=== PATIENT | male | born 1935 | race Caucasian/White ===

== ENCOUNTER 2018-02-02 08:59 | Inpatient (IN) ==
--- NOTE | 2018-02-02 12:19 | Vascular/Endovascular H&P ---
Date of Encounter: 02/02/18 Time of Encounter: 12:30 Assessment and Plan (1) Carotid stenosis, bilateral Current Visit: Yes Status: Chronic The pathophysiology and natural history of carotid stenosis was discussed with the patient and all questions were answered. The patient is an 80-99% right internal carotid stenosis and a 60-79% left internal carotid artery stenosis. 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 A right carotid endarterectomy is recommended. The risks, benefits and alternatives were discussed and all questions were answered. The patient expressed understanding and she is to proceed. He has been admitted for intravenous hydration and observation and surgical intervention. He will continue daily aspirin. (2) Mixed hyperlipidemia Current Visit: Yes Status: Chronic He was counseled any atherosclerotic risk factor reduction. (3) Essential hypertension Current Visit: Yes Status: Chronic History of Present Illness Chief complaint: Carotid stenosis HPI: Mr. Harris is a 82 year old male with a history of hypertension and hyperlipidemia. The patient reports that approximately 3 weeks ago he had nausea vomiting and ataxia. The patient initially dismissed his symptoms as being related to gastrointestinal bug. However symptoms persisted so he sought medical attention. He underwent a carotid duplex revealed significant carotid stenosis. He also underwent an MRI which revealed subacute and acute cerebellar infarcts as well as a chronic right occipital infarct. He underwent a carotid duplex revealed significant stenosis bilaterally. He was referred to vascular surgery for further evaluation. On evaluation patient denies any recurrent symptoms of CVA, TIA or amaurosis fugax. He denies headaches, dizziness or visual disturbances. He denies chest pain or shortness of breath. Past Med Surg Social Fam HX - Past Medical History Medical history: CVA, hyperlipidemia, other (Carotid stenosis) - Social History Smoking Status: Never smoker Smokeless Tobacco Status: No Alcohol use: none Drug use: none Current living situation: Home - Independent Activity Level: Very active - Family History Mother Hx Family Cardiac Disorders: No Hx Family Respiratory Disorders: No Hx Family Endocrine Disorder: Yes Father Hx Family Cardiac Disorders: No Hx Family Respiratory Disorders: No Hx Family Cancer: No Hx Family GI Disorders: No Hx Family Endocrine Disorder: Yes Medications and Allergies Aspirin [Adult Aspirin Regimen] 81 mg PO DAILY 02/02/18 [History] Atorvastatin Calcium [Lipitor] 80 mg PO HS 02/02/18 [History] Losartan Potassium [Cozaar] 50 mg PO DAILY 02/02/18 [History] Multivit-Min/FA/Lycopen/Lutein [A Thru Z Select Multivit Tab] 1 tab PO DAILY 10/18 [History] hydroCHLOROthiazide [Hydrochlorothiazide] 25 mg PO DAILY 02/02/18 [History] 3 Allergy/AdvReac Type Severity Reaction Status Date / Time No Known Allergies Allergy Verified 02/02/18 12:45 All Systems Review: The remainder of the systems were reviewed and are negative - Constitutional Constitutional: no chills, no fever(s) - Cardiovascular Cardiovascular: no chest pain at rest, no chest pain with exertion, no dyspnea at rest, no dyspnea on exertion - Gastrointestinal Gastrointestinal: no abdominal pain - Neurological Neurological: abnormal speech (Patient has chronic spasmodic dysphonia), no dizziness, no focal weakness, no numbness, no syncope - Hematological/Lymphatic Hematologic/Lymphatic: no easy bleeding, no easy bruising Exam General: Present: Conversant, No Apparent Distress HEENT: Present: Trachea midline, Pupils equal Neck: Present: Left Carotid bruit, Right Carotid bruit. Absent: JVD, Lymphadenopathy Cardiac: Present: Reg Rate and Rhythm, Normal S1 and S2 Lungs: Present: Normal Breath Sounds, No Wheeze, Rales, Rhonchi Neuro: Present: Alert and responsive, No focal deficits noted, Motor nerves grossly intact, Sensory nerves grossly intact, Other (Spasmodic dysphonia) Abdomen: Present: Soft, Non-tender. Absent: Masses Vascular: Present: Normal capillary refill, Pulse, normal. Absent: Cyanosis, Edema Skin: Absent: No rashes noted on visualized skin Musculoskeletal: Absent: No Chest Wall Tenderness Results 02/02/18 13:13 02/02/18 13:13 - Imaging / Other Tests Non Invasive Vascular Testing: report reviewed (Right internal carotid artery 80 -99% stenosis, left internal carotid artery 60-79% stenosis)
[2018-02-02] MEDS ORDERED: *HR* HYDROcodone/Acet 5/325 mg TABLET PO PRN (12:50)
[2018-02-02] MEDS ORDERED: Ondansetron 4 MG/2 ML VIAL IVP PRN (12:50)
[2018-02-02] MEDS ORDERED: Naloxone 0.4 MG/ML INJ IVP PRN (12:50)
[2018-02-02] MEDS ORDERED: *HR* OxyCODONE Immed Rel 5 MG TABLET PO PRN (12:50)
[2018-02-02] MEDS ORDERED: *HR* Labetalol 20 MG/4 ML SYRINGE IVP PRN (12:50)
[2018-02-02] MEDS ORDERED: OXYCODONE Oral CONC 10 MG/0.5 ML ORAL.SYG SL PRN ×2 (12:50)
[2018-02-02 13:33] LABS: Basophils # 0.1 K/mcL (0.0-0.2); Basophils % 0.5 %; Eosinophils # 0.1 K/mcL (0.0-0.6); Eosinophils % 1.2 %; Hematocrit 46.3 % (37.5-50.1); Hemoglobin 16.3 g/dL (12.9-16.9); Immature Granulocytes % 0.4 % (0-4); Lymphocytes # 1.6 K/mcL (0.6-4.6); Lymphocytes % 16.5 %; Mean Corpuscular HGB Conc 35.2 g/dL (31.6-35.5); Mean Corpuscular Hemoglobin 29.6 pg (28.0-33.3); Mean Platelet Volume 10.1 fL (9.4-12.4); Monocytes # 0.8 K/mcL (0.0-1.3); Monocytes % 7.8 %; Neutrophils # 7.1 K/mcL (1.6-8.9); Platelet Count 196 K/mcL (140-400); Red Blood Count 5.51 M/mcL (4.19-5.50); Segmented Neutrophils % 73.6 %
[2018-02-02 13:45] LABS: Prothrombin Time 11.4 Seconds (9.4-12.1)
[2018-02-02 14:06] LABS: BUN/Creatinine Ratio 17 (6-26); Blood Urea Nitrogen 20 mg/dL (8-23); Carbon Dioxide 28 mEq/L (23-29); Chloride 99 mEq/L (98-107); Glucose 108 mg/dL (70-105); Osmolality,Calculated 285 (280-300); Potassium 4.1 mEq/L (3.5-5.1); Sodium 136 mEq/L (136-145); eGFR For African Americans > 60 (> 60); eGFR For Non-African Americans 58 (> 60)
[2018-02-02] MEDS: Aspirin Enteric Coated 81 MG Tablet PO SCH (15:30)
[2018-02-02] MEDS ORDERED: *HR* Heparin 5,000 UNIT/ML VIAL SQ SCH (18:00)
[2018-02-02] MEDS: *HR* Metoprolol 5 MG/5 ML VIAL IVP SCH (18:52)
[2018-02-02] MEDS: 0.9 % Sodium Chloride 1,000 ML IVC SCH (21:50)
--- NOTE | 2018-02-03 00:08 | Anesthesia Evaluation PreOp ---
<Marbin Zunigageni Miller - Last Filed: 02/03/18 00:05> Date of Encounter: 02/03/18 Time of Encounter: 00:05 - Past History Planned Operation: Carotid Endarterectomy Cardiac History: HTN, Hyperlipidemia [employer] History: Other (3 weeks of N/V & Ataxia witg unagubg revealing acute & subacute cerebellar infarcts. R-occipital infarct. Abnormal speech pattern/ Chronic Spasmodic Dysphonia) Anesthesia History: Past Anesthesia Alcohol Use: none Drug use: none Medications and Allergies Aspirin [Adult Aspirin Regimen] 81 mg PO DAILY 02/02/18 [History] Atorvastatin Calcium [Lipitor] 80 mg PO HS 02/02/18 [History] Losartan Potassium [Cozaar] 50 mg PO DAILY 02/02/18 [History] Multivit-Min/FA/Lycopen/Lutein [A Thru Z Select Multivit Tab] 1 tab PO DAILY 10/18 [History] hydroCHLOROthiazide [Hydrochlorothiazide] 25 mg PO DAILY 02/02/18 [History] 3 Allergy/AdvReac Type Severity Reaction Status Date / Time No Known Allergies Allergy Verified 02/02/18 12:45 Anesthesia Results - Labs 02/02/18 13:13 02/02/18 13:13 Laboratory Results WBC 9.6 K/mcL (4.3-11.1) 02/02/18 13:13 RBC 5.51 M/mcL (4.19-5.50) H 02/02/18 13:13 Hgb 16.3 g/dL (12.9-16.9) 02/02/18 13:13 Hct 46.3 % (37.5-50.1) 02/02/18 13:13 MCV 84.0 fL (83.0-100.0) 02/02/18 13:13 MCH 29.6 pg (28.0-33.3) 02/02/18 13:13 MCHC 35.2 g/dL (31.6-35.5) 02/02/18 13:13 RDW 13.0 % (11.5-14.5) 02/02/18 13:13 Plt Count 196 K/mcL (140-400) 02/02/18 13:13 MPV 10.1 fL (9.4-12.4) 02/02/18 13:13 Immature Gran % 0.4 % (0-4) 02/02/18 13:13 Seg Neutrophils % 73.6 % 02/02/18 13:13 Lymphocytes % 16.5 % 02/02/18 13:13 Monocytes % 7.8 % 02/02/18 13:13 Eosinophils % 1.2 % 02/02/18 13:13 Basophils % 0.5 % 02/02/18 13:13 Neutrophils # 7.1 K/mcL (1.6-8.9) 02/02/18 13:13 Lymphocytes # 1.6 K/mcL (0.6-4.6) 02/02/18 13:13 Monocytes # 0.8 K/mcL (0.0-1.3) 02/02/18 13:13 Eosinophils # 0.1 K/mcL (0.0-0.6) 02/02/18 13:13 Basophils # 0.1 K/mcL (0.0-0.2) 02/02/18 13:13 PT 11.4 Seconds (9.4-12.1) 02/02/18 13:13 INR 1.0 02/02/18 13:13 Sodium 136 mEq/L (136-145) 02/02/18 13:13 Potassium 4.1 mEq/L (3.5-5.1) 02/02/18 13:13 Chloride 99 mEq/L (98-107) 02/02/18 13:13 Carbon Dioxide 28 mEq/L (23-29) 02/02/18 13:13 BUN 20 mg/dL (8-23) 02/02/18 13:13 Creatinine 1.20 mg/dL (0.70-1.30) 02/02/18 13:13 Est GFR ( Amer) > 60 (> 60) 02/02/18 13:13 Est GFR (Non-Af Amer) 58 (> 60) L 02/02/18 13:13 BUN/Creatinine Ratio 17 (6-26) 02/02/18 13:13 Glucose 108 mg/dL (70-105) H 02/02/18 13:13 Calculated Osmolality 285 (280-300) 02/02/18 13:13 Calcium 10.0 mg/dL (8.6-10.3) 02/02/18 13:13 Blood Type A POSITIVE 02/02/18 13:13 Antibody Screen NEGATIVE 02/02/18 13:13 Carotid Dopplers 02/01/2018 Impressions: Findings: Right proximal ICA has a critical, 80-99% stenosis. Findings: Left proximal ICA has a moderate, 40-59% stenosis. Recommendations: Futher evaluation is recommended Surgical evaluation is recommended. Critical findings reported to Physician by phone by Jennifer Nguyen RVT. ECHO 01/2018 EV/EV echo with saline Impressions: LVEF 60-65%. Normal LV chamber size and function. Mild asymmetric hypertrophy of the basal septum. Mild left ventricular diastolic dysfunction. Normal right ventricular structure and function. Mild mitral regurgitation. No evidence of pulmonary hypertension. Left Ventricular Wall Motion: Rest Echo Findings All wall segments showed normal motion. Anesthesia Exam Vital Signs Temp Pulse Resp BP Pulse Ox 02/02/18 22:14 97 02/02/18 19:19 98.7 F 59 16 170/94 95 02/02/18 15:27 97.7 F 80 16 144/93 98 02/02/18 13:23 98.0 F 82 16 172/108 99 Intake and Output 02/02/18 02/02/18 02/03/18 15:59 23:59 07:59 Intake Total 240 / 240 600 / 600 Output Total 100 / 100 Balance 140 / 140 600 / 600 Intake: Oral 240 / 240 600 / 600 Output: Urine 100 / 100 Other: Meal Lunch Percent of Meal Consumed 90% # Voids 0 Weight 77 kg Height: 5'10" Weight: 169# BMI = 24 Anesthesia Assess/Plan ASA Score: 3 <Rekha Rose - Last Filed: 02/03/18 08:05> Date of Encounter: 02/03/18 - Past History Pulmonary History: Denies Any Significant HX [employer] History: Other (3 weeks of N/V & Ataxia revealing acute & subacute cerebellar infarcts. R-occipital infarct. Abnormal speech pattern/Chronic Spasmodic Dysphonia) Other Medical History: Denies Any Significant HX Anesthesia History: No Prior Anesthetic Complications (no fhx of problems with anesthesia), Past Anesthesia (cataracts, tonsillectomy as a child) - Meds/Allergy Pre-op Review Medications Reviewed: Yes Allergies Reviewed: Yes Beta Blockers on Current Med List: Yes (on in the hospital) Anesthesia Results - Labs 02/02/18 13:13 02/02/18 13:13 - Imaging Additional studies: 7-2-18 TTE: Impressions: LVEF 60-65%. Normal LV chamber size and function. Mild asymmetric hypertrophy of the basal septum. Mild left ventricular diastolic dysfunction. Normal right ventricular structure and function. Mild mitral regurgitation. No evidence of pulmonary hypertension. Anesthesia Exam - HEENT Pupil (Motor): Pupils equal, EOMI Mallampati: III Teeth: Missing, Poor dentition - W[employer] LOC: Oriented - Cardiac Rhythm: Regular Murmur: None - Pulmonary Breath Sounds: bilateral Clear Respiratory Effort: Symmetrical Anesthesia Assess/Plan ASA Score: 3 Modified [place] Scale for Level of Consciousness: Cooperative, oriented, and tranquil Anesthetic Plan: General Monitoring Plan: Standard Monitors, A-Line Recovery Plan: PACU
[2018-02-03] MEDS: *HR* Metoprolol 5 MG/5 ML VIAL IVP SCH ×5 (00:45→23:24)
[2018-02-03] MEDS ORDERED: Heparin 1,000 UNITS/500 mL 500 ML ONE ×2 (06:58→07:22)
[2018-02-03] MEDS ORDERED: *HR* Midazolam HCl 2 MG/2 ML VIAL ONE (07:12)
[2018-02-03] MEDS ORDERED: *HR* Propofol 200 MG/20 ML VIAL IVP ONE (07:12)
[2018-02-03] MEDS ORDERED: *HR* FentaNYL (PF) 100 MCG/2 ML VIAL ONE ×2 (07:12→09:06)
[2018-02-03] MEDS ORDERED: Lidocaine -MPF 2% 2 ML VIAL ONE ×2 (07:12→07:25)
[2018-02-03] MEDS ORDERED: Ondansetron 4 MG/2 ML VIAL ONE (07:13)
[2018-02-03] MEDS ORDERED: Dexamethasone 4 MG/ML VIAL ONE (07:13)
[2018-02-03] MEDS ORDERED: *HR* Rocuronium Bromide 50 MG/5 ML VIAL ONE (07:13)
[2018-02-03] MEDS ORDERED: *HR* Etomidate 40 MG/20 ML VIAL IVP ONE (07:19)
[2018-02-03] MEDS ORDERED: Protamine Sulfate 50 MG/5 ML VIAL IVP ONE (07:21)
[2018-02-03] MEDS ORDERED: *HR* Phenylephrine 10 MG/ML VIAL ONE (07:29)
[2018-02-03] MEDS ORDERED: Lidocaine 1% 20 ML MDV ONE (07:53)
[2018-02-03] MEDS ORDERED: Vancomycin 1,000 MG, Sodium Chloride IRRigation 1,000 ML IR ONE (08:00)
[2018-02-03] MEDS ORDERED: *HR* Heparin 5,000 UNIT/ML VIAL ONE (08:53)
[2018-02-03] MEDS ORDERED: *HR* OxyCODONE Immed Rel 5 MG TABLET PO PRN (08:56)
--- NOTE | 2018-02-03 10:57 | Operative Note ---
Date of procedure: 02/03/18 Pre-op diagnosis: Symptomatic 80-99% right internal carotid artery stenosis Post-op diagnosis: same Procedure: Right carotid endarterectomy with Hemashield patch angioplasty. Complications: None Anesthesia: DARCYA Surgeon: Ritesh Sweet Was there an miner assistant present: No Estimated blood loss (cc): 50 Specimen: Right carotid plaque Condition: stable Disposition: PACU Procedure in Detail: Indications: The patient is an 82-year-old male with a history of super vascular accidents. He recently underwent a carotid duplex and was found have a 80-99% right internal carotid artery stenosis. A right carotid endarterectomy was recommended to reduce his risk of future stroke. Procedure: The patient was identified in the preoperative area. The risks, benefits, and alternatives of the procedure were discussed and all questions were answered. The patient was then taken to the operating room and placed in supine position on the operating table. After the induction of general endotracheal anesthesia, hr was cleaned and draped in normal sterile fashion. A longitudinal incision was made anterior to the right sternocleidomastoid muscle. Hemostasis was obtained via electrocautery. A branch of the external jugular vein was clamped divided and tied off with 3-0 silk suture. Through a process of blunt, sharp, and electrocautery dissection, the platysma was traversed and the jugular vein was identified. The facial vein was dissected, clamped, divided and ligated with a 2-0 silk suture ligature. The jugular vein was retracted to expose the carotid bifurcation. The patient received 2000 units of heparin intravenously at this time. Proximal dissection of the common and external carotid arteries were performed circumferentially. Dissection of the internal carotid was performed circumferentially. Vessels loops were passed around the internal and external carotid and an umbilical tape was passed from the common carotid artery. The patient received additional 3000 units of heparin intravenously. Additional heparin was given throughout the case to maintain adequate anticoagulation. After waiting adequate time for the heparin to circulate, the vessels were occluded and a longitudinal arteriotomy was made into the common carotid artery and extended into the internal carotid beyond the plaque. The plaque was long, extended distally and was heavily calcified. Vigorous pulsatile retrograde flow was noted from the internal carotid artery upon release of the vessel loop. The rapid pulsatile retrograde flow revealed adequate retrograde perfusion. Therefore no shunt was placed. A dental Frontier was then used to perform a standard endarterectomy. Proximal and distal endpoints were inspected. No elevated flaps were noted. Additional heparin was given throughout the procedure to maintain adequate anticoagulation. A Hemashield patch was cut to fit the defect and sutured in place with running 6 -0 Prolene. Prior to completing the closure, each vessel was flushed and then reoccluded. Heparinized saline was infused into the lumen. The patch was completed. Flow was restored in the external carotid artery, followed the common carotid artery, lastly the internal carotid artery was opened. A low resistance arterialized signal was present within the internal carotid artery beyond the patch. Thrombin and Gelfoam were used to aid in hemostasis. Meticulous hemostasis was obtained throughout the wound with electrocautery. Platelet rich and platelet poor plasma were infused into the wounds. The sternocleidomastoid was reapproximated with interrupted 3-0 Vicryl. Platelet rich and platelet poor plasma were infused into the wound. A TLS drain was brought through a separate stab incision and sutured in place with 0 silk suture. The platysma was reapproximated with running 3-0 Vicryl. Local anesthetic was infused in the skin. A 3-0 Monocryl was used to reapproximate the skin. A sterile dressing was applied. The patient was extubated, taken to the recovery room in stable condition.
--- NOTE | 2018-02-03 11:32 | Anesthesia Evaluation Post Op ---
Date of Encounter: 02/03/18 Time of Encounter: 11:31 - Vital Signs Vital Signs: Last Vital Signs Temp 97.7 F 02/03/18 11:02 Pulse 57 02/03/18 11:22 Resp 16 02/03/18 11:22 BP 127/80 02/03/18 11:22 Pulse Ox 97 02/03/18 11:22 - Lungs Lungs: Clear Ascult./Percussion - Airway Airway: Non-obstructed - Cardiovascular Regular Rate - Mental Status Mental Status: Alert & Oriented, Answers Appropriately - Pain Pain Scale: 2 - Nausea Vomiting Nausea Vomiting: Not Present - Hydration Hydration: NPO, Meyer catheter - Discharge PostOp Status: Transfer Patient to floor
[2018-02-03] MEDS: Aspirin Enteric Coated 81 MG Tablet PO SCH (15:02)
[2018-02-03] MEDS: hydroCHLOROthiazide 25 MG TABLET PO SCH (15:03)
[2018-02-03] MEDS: Multivit/Ca/Min/Fe/FA 1 TAB TABLET PO SCH (15:03)
[2018-02-03] MEDS: Acetaminophen 325 MG TABLET PO PRN ×2 (15:16→23:32)
[2018-02-03] MEDS: 0.9 % Sodium Chloride 1,000 ML IVC SCH (15:16)
[2018-02-04] MEDS: *HR* Metoprolol 5 MG/5 ML VIAL IVP SCH (05:54)
--- NOTE | 2018-02-04 06:27 | Discharge Summary ---
Orders not resulted at time of discharge: Pending orders 02/02/18 12:50 ECG 12 lead ECG [ECG] Routine 02/03/18 10:57 Surgical Pathology [PTH] Routine Date of Encounter: 02/04/18 Time of Encounter: 07:45 - Discharge Diagnosis (1) Carotid stenosis, bilateral Priority: Primary Status: Chronic Comments: Patient's postoperative day #1 after right carotid endarterectomy. His wound is healing well. He has no neurologic deficits. He will be discharged today. (2) Mixed hyperlipidemia Priority: Secondary Status: Chronic Comments: He was counseled regarding atherosclerotic risk factor reduction. (3) Essential hypertension Priority: Secondary Status: Chronic - Hospital Course Hospital course: Mr. Harris is a 82 year old male with a history of hypertension and hyperlipidemia. He is found have significant carotid stenosis after sustaining a cerebellar infarct. He is also undergone a prior right hemispheric infarct. The patient was admitted on 02/02/2018. He underwent a right carotid endarterectomy on 02/03/2018. He tolerated the procedure well. Discharged in stable condition on postoperative day #1 without complications. - Time Spent with Patient Total time spent providing and/or coordinating discharge services: - Discharge Medications Prescriptions: OxyCODONE/APAP 5/325 [Percocet 5/325 MG] 1 each PO Q6HR PRN 5 Days #20 tablet PRN Reason: Postoperative pain Home Medications: Aspirin [Adult Aspirin Regimen] 81 mg PO DAILY 02/02/18 [History] Atorvastatin Calcium [Lipitor] 80 mg PO HS 02/02/18 [History] Losartan Potassium [Cozaar] 50 mg PO DAILY 02/02/18 [History] Multivit-Min/FA/Lycopen/Lutein [A Thru Z Select Multivit Tab] 1 tab PO DAILY 10/18 [History] hydroCHLOROthiazide [Hydrochlorothiazide] 25 mg PO DAILY 02/02/18 [History] OxyCODONE/APAP 5/325 [Percocet 5/325 MG] 1 each PO Q6HR PRN 5 Days #20 tablet [Rx] Allergies/Adverse Reactions: 3 Allergy/AdvReac Type Severity Reaction Status Date / Time No Known Allergies Allergy Verified 02/02/18 12:45 Date of admission: 02/02/18 12:48 Primary care physician: Sd Mccarthy, Procedure(s) Performed: Right carotid endarterectomy Discharging clinician: Ritesh Sweet Anticipated date of discharge: 02/04/18 Exam Vital Signs, Last 4 Hours Temp Pulse Resp BP Pulse Ox 02/04/18 03:55 98.6 F 53 17 161/96 95 General: Present: Conversant, No Apparent Distress HEENT: Present: Trachea midline, Pupils equal Neck: Present: Other. Absent: Tracheal deviation Cardiac: Present: Reg Rate and Rhythm Lungs: Present: Normal Breath Sounds Neuro: Present: Alert and responsive, No focal deficits noted, Motor nerves grossly intact, Sensory nerves grossly intact Abdomen: Present: Soft Vascular: Present: Normal capillary refill, Surgical incisions (No hematoma, incision clean dry and intact) Skin: Present: No rashes noted on visualized skin - Patient Status Disposition: Home, Self-Care Condition: Good Functional capacity at discharge: independent ambulation Overall status at discharge: patient is back to baseline - Discharge Instructions Follow Up With: Sd Mccarthy MD [Primary Care Provider] - Ritesh Sweet MD [Partnered Physician] - 03/10/18 2:40 pm Additional Instructions: May remove bandage and shower on 02/05/2018. Wash wound gently and pat to dry. No driving for [address] Sweet at [phone] with questions or concerns. - Diet and Activity Activity: increase activity as tolerated Diet: low fat, low cholesterol - VTE Documentation of Mechanical Device: Intermittent pneumatic compression device
[2018-02-04 06:48] VITALS: BP 173/99
[2018-02-04] MEDS: Multivit/Ca/Min/Fe/FA 1 TAB TABLET PO SCH (07:54)
[2018-02-04] MEDS: hydroCHLOROthiazide 25 MG TABLET PO SCH (07:55)
[2018-02-04] MEDS: Aspirin Enteric Coated 81 MG Tablet PO SCH (07:55)
== END 2018-02-04 10:54 | disposition home or self-care (01) | DRG 39 ==
LOC: 2NENU → 2NNU 02-03 10:05
PROVIDERS: ADMIT Surgery; ATTEND Surgery